=== PATIENT | female | born 1940 | race African-American/Black ===

== ENCOUNTER 2019-10-04 13:56 | Emergency (ER) | payer MEDICAID ==
[~2019-10-04] VITALS: Ht 165.1 cm; Wt 71.0 kg
[2019-10-04 15:38] LABS: CHLORIDE 108 mEq/L (98-107)
[2019-10-04 15:41] LABS: PROTHROMBIN TIME 10.7 sec (9.6-11.0)
[2019-10-04 15:48] LABS: EOSINOPHILS % 2.5 % (0.0-5.0); HEMATOCRIT. 44.9 % (36.0-48.0); HEMOGLOBIN. 14.7 g/dL (12.0-16.0); LYMPHOCYTES % 36.4 % (20.0-50.0); MEAN CORPUSCULAR HEMOGLOBIN 27.8 pg (28.0-32.0); MEAN CORPUSCULAR VOLUME 84.9 fL (81.0-99.0); MEAN PLATELET VOLUME 7.9 fl (7.4-10.4); MONOCYTES % 7.3 % (2.0-8.0); NEUTROPHILS % 52.8 % (40.0-76.0); PLATELET 219 x1000/uL (130-400); RED BLOOD CELL COUNT 5.29 mill/uL (4.2-5.4); RED CELL DISTRIBUTION WIDTH 15.4 % (11.6-14.6)
[2019-10-04 16:36] VITALS: BP 167/84
== END 2019-10-04 16:45 | disposition home or self-care (01) ==
LOC: ER 13:56 → CANBEDREQ 16:33 → ER 16:45
DX: I20.9 Angina pectoris, unspecified (principal); M25.512 Pain in left shoulder; I10 Essential (primary) hypertension; E78.00 Pure hypercholesterolemia, unspecified; R20.0 Anesthesia of skin
CPT/HCPCS: 36415; 71045; 83880; 84484; 93005; 99284